=== PATIENT | male | born 1955 | race Caucasian/White ===

== ENCOUNTER 2017-04-22 13:50 | Emergency (ER) | payer OTHER ==
[2017-04-22 13:56] VITALS: RESP 16; TEMP 97.9; O2SAT 95
[2017-04-22] MEDS ORDERED: fentaNYL 100 MCG/2 ML INJ IVP ONE (14:04)
--- NOTE | 2017-04-22 14:06 | EDPHY ---
H & P Time Seen by Provider: 04/22/17 13:59 HPI/ROS: CHIEF COMPLAINT: Right chest pain HISTORY OF PRESENT ILLNESS: Thrown off a horse and landed on the ground at 11: 00 a.m.. Had right anterior chest pain afterwards worse with breathing. Radiates around his armpit to his back. Symptoms moderate to severe started just after the fall. Not associated with neck or back pain or weakness or numbness in extremities. No abdominal pain no head injury or loss of consciousness. REVIEW OF SYSTEMS: Eye: no change in vision ENT: no sore throat Cardiac: HPI Pulmonary: no cough or SOB Abdomen: no vomiting, diarrhea, abdominal pain Musculoskeletal: no back pain Skin: Abrasion left toe Neuro: no headache Constitutional: no fever : no urinary symptoms A comprehensive 10 point review of systems is otherwise negative aside from elements mentioned in the history of present illness. PAST MEDICAL HISTORY: Atrial fibrillation, not anticoagulated. Gout, clavicle fracture pneumothorax or, right hip resurfacing. Social history: No alcohol General Appearance: Alert and conversant, cooperative. Eyes: No scleral icterus. Pupils equal round reactive extraocular motion intact ENT, Mouth: Normal mucous membranes. Respiratory: Decreased breath sounds on the right but no crepitus. Cardiovascular: Regular rate and rhythm. Gastrointestinal: Abdomen is soft and non tender. Specifically nontender over the spleen or liver, nontender over the right flank. Neurological: Alert, face symmetric, normal motor and sensory in extremities. Skin: Small abrasion left 3rd toe otherwise negative Musculoskeletal: No cervical thoracic or lumbar spine tenderness. No extremity tenderness. Right chest wall tenderness above and lateral to the right nipple. Psychiatric: Not agitated. Emergency Department course/MDM: 100 mcg IV fentanyl, chest x-ray ordered. I-STAT check hematocrit and creatinine. 1436: Right 3rd rib fracture, will get CT chest to further evaluate. Discussed and consented. 1509: Chest CT shows right 3rd rib fracture per Dr. Zavala otherwise no evidence of other injury Results discussed, wants to go home, oral Percocet. No previous history of substance abuse or addiction. Smoking Status: Never smoked Constitutional: Initial Vital Signs Temperature (C) 36.6 C 04/22/17 13:50 Heart Rate 74 04/22/17 13:50 Respiratory Rate 16 04/22/17 13:50 Blood Pressure 98/74 L 04/22/17 13:50 O2 Sat (%) 95 04/22/17 13:50 O2 Delivery Mode Nasal Cannula O2 (L/minute) 2 Allergies/Adverse Reactions: Sulfa (Sulfonamide Antibiotics) Allergy (Verified 04/22/17 13:56) Home Medications: Medication Instructions Recorded Aspirin [Aspir 81] 81 mg PO DAILY 09/23/11 Levothyroxine [Synthroid 137 mcg 137 mcg PO DAILY06 09/23/11 (RX)] Probenecid [Probenecid 500mg (RX)] 500 mg PO BID 09/23/11 oxyCODONE/APAP 5/325 [Percocet] 1 - 2 tab PO Q4-6PRN PRN #13 tab 04/22/17 Medical Decision Making - Diagnostics Imaging Results: Imaging Impressions Chest X-Ray 04/22/17 13:59 Impression: Acute fracture of the right posterior third rib. No pneumothorax. Chest CT 04/22/17 14:36 Impression: nondisplaced posterior right third rib fracture, otherwise negative CT examination of the chest. Results called to Dr. Aldrich at 3:10 PM. Chest x-ray shows at least 1 right-sided upper rib fracture. Imaging: I viewed and interpreted images myself Differential Diagnosis: Differential for chest trauma considered including but not limited to pneumothorax, hemothorax, rib fracture, vascular injury - Data Points Laboratory Results: 04/22/17 13:59 POC Hgb 17.3 gm/dL gm/dL (13.7-17.5) POC Hct 51 % % (40-51) POC Sodium 144 mEq/L mEq/L (135-145) POC Potassium 4.5 mEq/L mEq/L (3.3-5.0) POC Chloride 107 mEq/L mEq/L (97-110) POC BUN 30 mg/dL H mg/dL (7-23) POC Creatinine 1.1 mg/dL mg/dL (0.7-1.3) POC Glucose 127 mg/dL H mg/dL (70-100) Medications Given: Discontinued Medications Fentanyl (Sublimaze) 100 mcg IVP EDNOW ONE Stop: 04/22/17 14:05 Last Admin: 04/22/17 14:07 Dose: 100 mcg Point of Care Test Results: 04/22/17 13:59 POC Sodium 144 POC Potassium 4.5 POC Chloride 107 POC BUN 30 H POC Creatinine 1.1 POC Glucose 127 H Departure - Departure Disposition: Home, Routine, Self-Care Clinical Impression: Fracture of rib of right side Qualifiers: Encounter type: initial encounter Rib fracture type: single rib Fracture type: closed Qualified Code(s): S22.31XA - Fracture of one rib, right side, initial encounter for closed fracture Condition: Good Instructions: Rib Fracture (ED) Referrals: Britt Kimball MD [Primary Care Provider] - As per Instructions Eliazar Dickey MD [Medical Doctor] - 3-4 days, if not improved (Follow-up next week with trauma surgeon if still significantly symptomatic.) Prescriptions: oxyCODONE/APAP 5/325 [Percocet] 1 - 2 tab PO Q4-6PRN PRN #13 tab PRN Reason: Pain
[2017-04-22 14:19] VITALS: BP 124/74; PULSE 84
[2017-04-22] MEDS ORDERED: IOPAMIDOL (ISOVUE-300) 100 ML BTL ONE (14:39)
[2017-04-22] MEDS ORDERED: OXYCODONE/APAP 5/325 TAB PO ONE (15:19)
== END 2017-04-22 15:43 | disposition home or self-care (01) ==
DX: S22.31XA Fracture of one rib, right side, initial encounter for closed fracture (principal); Z79.82 Long term (current) use of aspirin; V80.010A Animal-rider injured by fall from or being thrown from horse in noncollision accident, initial encounter; Y99.8 Other external cause status; Y93.52 Activity, horseback riding
CPT/HCPCS: 82947-QW; 96374; J3010; Q9967

== ENCOUNTER → 2017-05-24 | Outpatient (CLI) | payer OTHER | LOC: BMCIMAGING 16:11 | PROVIDERS: ATTEND Internal Medicine | DX: R05 Cough (principal) ==